=== PATIENT | male | born 1970 | race American Indian/Alaskan Native ===

== ENCOUNTER 2020-07-01 03:53 | Emergency (ER) | payer OTHER ==
[2020-07-01] MEDS ORDERED: ACETAMINOPHEN 325 MG TAB ONE (04:13)
[2020-07-01] MEDS ORDERED: ACETAMINOPHEN 325 MG TAB PO ONE (04:20)
[2020-07-01 05:10] VITALS: BP 156/95
== END 2020-07-01 04:20 | disposition left against medical advice (07) ==
LOC: ED 03:53
DX: M25.512 Pain in left shoulder (principal); Z98.890 Other specified postprocedural states; Z53.21 Procedure and treatment not carried out due to patient leaving prior to being seen by health care provider